=== PATIENT | male | born 1990 | race Caucasian/White ===

== ENCOUNTER 2018-06-02 09:47 | Emergency (ER) | payer OTHER ==
[~2018-06-02] VITALS: Ht 180.3 cm; Wt 73.2 kg
[2018-06-02 10:01] VITALS: BP 128/75; PULSE 67; RESP 16; Ht 180.3 cm; Wt 73.2 kg
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
== END 2018-06-02 12:14 | disposition home or self-care (01) ==
LOC: FTE 09:47
DX: Z48.02 Encounter for removal of sutures (principal)
CPT/HCPCS: 99281